=== PATIENT | male | born 2000 | race Caucasian/White ===

== ENCOUNTER → 2020-04-09 | Outpatient (CLI) | payer BC ==
--- NOTE | 2020-04-09 07:58 | US ---
EXAMINATION TYPE: US abdomen complete DATE OF EXAM: 04/09/2020 COMPARISON: NONE CLINICAL HISTORY: R10.9 Abdominal pain. 20 year old with abdominal pain for 5 months. 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 EXAM MEASUREMENTS: Liver Length: 11.6 cm Gallbladder Wall: 0.2 cm CBD: 0.5 cm Right Kidney: 10.7 x 4.7 x 4.6 cm Left Kidney: 10.4 x 5.5 x 4.0 cm *Technical limitations due to patient's history and displacement of organs and overlying bowel conten t Pancreas: Obscured by bowel gas Liver: no evidence of cystic area or mass as visualized Gallbladder: no evidence of stones Evidence for sonographic Arguelles's sign: no CBD: appears wnl Spleen: unable to visualize Right Kidney: no evidence of hydronephrosis Left Kidney: no evidence of hydronephrosis Upper IVC: wnl Abd Aorta: bifurcation obscured, visualized portions appear wnl Homogeneous solid area adjacent to inferior pole of right kidney = 4.8 x 3.2 x 4.5cm, does not appe ar connected to right kidney Possible splenule vs mass left upper quadrant IMPRESSION: 1. Splenule versus mass left upper quadrant CT abdomen recommended for additional evaluation. 2. Spleen is not identified during this exam.
== END | disposition home or self-care (01) ==
LOC: RADUSWWP 06:57
PROVIDERS: ATTEND Pediatrics
DX: R10.9 Unspecified abdominal pain (principal)
CPT/HCPCS: 76700

== ENCOUNTER → 2020-04-19 | Outpatient (CLI) | payer BC ==
--- NOTE | 2020-04-20 07:39 | CT ---
EXAMINATION TYPE: CT abdomen pelvis wo/w con DATE OF EXAM: 04/19/2020 COMPARISON: Ultrasound abdomen 10 days ago HISTORY: Left sided abdominal pain x4-5 months. Hx of situs inversus. CT DLP: 620.4 mGycm, Automated Exposure Control for Dose Reduction was Utilized. CONTRAST: CT scan of the abdomen and pelvis is performed with oral and without and with IV Contrast, patient in jected with 100ml mL of Isovue 300. FINDINGS: LUNG BASES: No significant abnormality is appreciated. LIVER/GB: Liver occupies both the right and left upper quadrants. Gallbladder anterior upper abdomen midline falx within normal limits. PANCREAS:. Pancreas difficult to distinctly visualize likely within normal limits in their axial imag e 29. SPLEEN: There are several splenules in the right upper quadrant below liver. ADRENALS: No significant abnormality is seen. KIDNEYS: Somewhat high positioning of the kidneys. No renal stones noted on noncontrast images. There is no concerning renal mass or hydronephrosis seen bilaterally. Urinary bladder. Within normal limit s. There is retroaortic left renal vein which is normal variant. There is additional prominent draini ng venous structure extending superiorly. BOWEL: There is right-sided stomach bubble. There is wandering see comment to the anterior upper to mid pelvis from the right lower quadrant. There is oral contrast only reaching proximal ileal loops. Evaluation distal bowel slightly suboptimal. No suspicious small large bowel dilatation. Mild to mode rate fecal prominence throughout the right and left colon as well as transverse colon. PROSTATE/SEMINAL VESICLES: No gross abnormality seen. LYMPH NODES: No greater than 1cm abdominal or pelvic lymph nodes are appreciated. OSSEOUS STRUCTURES: Transitional type L6 vertebra is sacralized on the left. 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 IMPRESSION: Source of acute left-sided pain not identified. Mild to moderate proximal to mid colonic fecal stasis. No bowel obstruction. Underlying situs ambiguous.
== END | disposition home or self-care (01) ==
LOC: RADCTMAIN 16:19
PROVIDERS: ATTEND Pediatrics
DX: K59.89 Other specified functional intestinal disorders (principal)
CPT/HCPCS: 74178; Q9967